=== PATIENT | male | born 1960 | race Caucasian/White ===

== ENCOUNTER 2017-12-17 19:48 | Emergency (ER) | payer OTHER ==
[~2017-12-17] VITALS: Ht 182.9 cm; Wt 104.3 kg
[2017-12-17] MEDS ORDERED: OXYMETAZOLINE 0.05% NASAL SPRAY 15ML BOTTLE. NS ONE (20:00)
--- NOTE | 2017-12-17 20:05 | PHYS DOC ---
Past History Past Medical History: High Cholesterol, Hypertension Additional Past Surgical Histo: Ankle, Bromide Teeth Smoking: Non-smoker Alcohol Use: Occasionally Drug Use: None Adult General Chief Complaint Chief Complaint: NOSEBLEED HPI HPI 57-year-old male presents with a 30 minute history of nose bleeding out of left nare. Denies known trauma. Denies use of blood thinners. Denies fever or chills. Patient reports concern given amount of bleeding and therefore presents to the ER for evaluation. Review of Systems Review of Systems Constitutional: Denies fever or chills [] Eyes: Denies change in visual acuity, redness, or eye pain [] HENT: Reports epistaxis, denies nasal congestion Respiratory: Denies cough or shortness of breath [] Cardiovascular: Denies chest pain or palpitations GI: Denies abdominal pain, nausea, vomiting, or diarrhea [] Musculoskeletal: Denies back pain or joint pain [] Integument: Denies rash or skin lesions [] Neurologic: Denies headache, focal weakness or sensory changes [] Complete systems were reviewed and found to be within normal limits, except as documented in this note. Current Medications Current Medications Current Medications Medications (Trade) Dose Ordered Sig/Carmen Start Time Stop Time Status Last Admin Dose Admin Oxymetazoline HCl (Afrin) 2 spray 1X ONCE 12/17/17 20:00 12/17/17 20:01 UNV 12/17/17 19:58 2 SPRAY Allergies Allergies Allergies Coded Allergies Type Severity Reaction Last Updated Verified No Known Drug Allergies 12/17/17 No Physical Exam Physical Exam Constitutional: Well developed, well nourished, no acute distress, non-toxic appearance. [] HENT: Normocephalic, atraumatic, active bleeding from left nare, some blood noted in pharynx Eyes: Conjunctiva normal, no discharge. [] Neck: Normal range of motion, no tenderness, supple Cardiovascular: Heart rate regular rhythm, no murmur [] Lungs & Thorax: Bilateral breath sounds clear to auscultation [] Skin: Warm, dry, no erythema, no rash. [] Extremities: No tenderness, ROM intact, no edema. [] Neurologic: Alert and oriented X 3, normal motor function, normal sensory function, no focal deficits noted. [] Psychologic: Affect normal, judgement normal, mood normal. [] EKG EKG [] Radiology/Procedures Radiology/Procedures [] Course & Med Decision Making Course & Med Decision Making Patient presents with history of present illness and physical exam consistent for epistaxis from left nare. NO use of blood thinners reported. Denies trauma. Symptomatic treatment provided with Afrin and nasal clamp with interval resolution of bleeding. Blood pressure also significantly improved prior to discharge down to 160s/90s upon discharge. Educated of need to follow with PCP regarding possible adjustment of BP medications. Patient stable for discharge with outpatient follow-up with PCP. Discussed findings and plan with patient, who acknowledges understanding and agreement. Dragon Disclaimer Dragon Disclaimer This electronic medical record was generated, in whole or in part, using a voice recognition dictation system. Departure Departure: Impression: Primary Impression: Epistaxis Disposition: 01 HOME, SELF-CARE Condition: IMPROVED Patient Instructions: Nosebleed, [id number] Additional Instructions: Use humidifier at night JESSICA MCINTYRE DO Dec 17, 2017 20:05
[2017-12-17 20:23] VITALS: BP 162/98
== END 2017-12-17 20:30 | disposition home or self-care (01) ==
LOC: ER 19:48
DX: R04.0 Epistaxis (principal); E78.00 Pure hypercholesterolemia, unspecified; I10 Essential (primary) hypertension
CPT/HCPCS: 99282